=== PATIENT | female | born 1945 | race Asian ===

== ENCOUNTER → 2024-06-01 16:55 | Outpatient (REF) | payer MEDICARE, BC, SELFPAY | LOC: WDC 16:55 | PROVIDERS: ATTENDING PHYSICIAN Family Medicine | DX: Z12.31 Encounter for screening mammogram for malignant neoplasm of breast (principal) | CPT/HCPCS: 77063; 77067 ==

== ENCOUNTER → 2024-12-05 06:20 | Day surgery (SDC) | payer MEDICARE, BC, SELFPAY | LOC: GI 06:20 | PROVIDERS: ATTENDING PHYSICIAN Internal Medicine Gastroenterology | DX: Z12.11 Encounter for screening for malignant neoplasm of colon (principal); K64.8 Other hemorrhoids; K57.30 Diverticulosis of large intestine without perforation or abscess without bleeding; K29.50 Unspecified chronic gastritis without bleeding; D12.4 Benign neoplasm of descending colon; R10.13 Epigastric pain; K44.9 Diaphragmatic hernia without obstruction or gangrene; K31.89 Other diseases of stomach and duodenum | CPT/HCPCS: 45385; 43239; 88305; 88342 ==

== ENCOUNTER → 2025-04-25 13:31 | Outpatient (REF) | payer MEDICARE, BC, SELFPAY | LOC: RAD 13:31 | PROVIDERS: ATTENDING PHYSICIAN Family Medicine | DX: N39.0 Urinary tract infection, site not specified (principal) | CPT/HCPCS: 76770 ==

== ENCOUNTER 2025-05-05 09:11 | Emergency (ER) | payer MEDICARE, BC, SELFPAY ==
[2025-05-05 09:15] VITALS: BP 156/111
--- NOTE | 2025-05-05 10:06 | ED.GENMED ---
History of Present Illness
General
Chief Complaint: Allergic Reaction
Time Seen by Provider: 05/05/25 09:54
History of Present Illness
History of Present Illness:
79-year-old female presents to the emergency department for evaluation of left forearm and hand swelling after being stung by bee on the left forearm yesterday. Is been taking [id number]-rrw-[id number] antihistamines without improvement. Reports intense
itching and warmth to the area. No chest tightness or facial swelling. Requires mandrin interpretation for entire encounter
Past History
Past History
ED Past Medical History: Other (Wrist fracture, Kidney stones); Negative Asthma, HTN, Hypercholesterolemia or NIDDM
ED Past Surgical History: None
Social History
Tobacco: Non-smoker
Alcohol: None
Drug: None
Personal:
Living: with family
Employment: Not employed
Family History
Family History: Hypertension
Review of Systems
Review of Systems
Allergies reviewed?: Yes
All Other Systems: ROS reviewed and negative except as documented in HPI and ROS
Phy Exam
Physical Exam
Physical Exam:
GEN: Well appearing, NAD, WDWN
HEENT: Oral mucosa moist, no scleral icterus
Cardiac: Regular rate
Lung: No respiratory distress, no tachypnea
MSK: No gross deformity or injuries. Diffuse erythema and swelling from the proximal forearm extending to the hand with a punctate wound to the dorsal forearm from reported insect sting
Skin: Good color, no pallor or jaundice, no rashes
Neuro: AO x3, moves all extremities freely
Psych: Calm, cooperative
Course
Orders/Labs/Results
Orders:
Orders
05/05/25 10:08
Prednisone [Deltasone] 40 mg PO NOW STA
Vital Signs
Initial and Last Documented VS:
Initial Vital Signs
Temp Pulse Resp BP Pulse Ox
98.7 F 85 16 156/111 98
05/05/25 09:15 05/05/25 09:15 05/05/25 09:15 05/05/25 09:15 05/05/25 09:15
Last Documented Vital Signs
Temp Pulse Resp BP Pulse Ox
98.7 F 79 20 138/94 99
05/05/25 09:15 05/05/25 10:38 05/05/25 10:38 05/05/25 10:38 05/05/25 10:38
MDM/Problems Addressed
MDM/Problems Addressed:
Given rapidity of development of symptoms likely uncontrolled histamine response will treat with steroids, do not see indication for labs or antibiotics at this point
*Pulse Oximetry
SaO2: 98
Oxygen Mode of Delivery: Room air
Patient hypoxic: no (99% room air)
*Critical Care Note
Total Time (30-74mins, 75-104mins- exclusive of procedures): Not Applicable
ED Attending Note
-
Portions of this chart may have been created with voice recognition software.� Occasional wrong word or��sound alike� substitutions may have occurred due to the inherent limitations of voice recognition software.
Discharge Plan
Departure
Patient Disposition: Home (Routine Discharge)
Date of Disposition: 05/05/25
Time of Disposition: 10:08
Patient with high blood pressure during this ER visit?: No
Discharge Problem:
Allergic reaction
Instructions: Allergic reaction - ED discharge instructions
Prescriptions:
New
methylprednisolone [Medrol (Raad)] 4 mg tablets,dose pack
See Rx Instructions .ROUTE .COMPLEX Qty: 21 0RF
Rx Instructions:
orally per package directions
No Action
acetaminophen 325 MG tablet
650 mg PO Q4HPRN PRN (Reason: fever)
isoniazid 300 MG tablet
300 mg PO DAILY
Vitamin B-6
1 tab PO DAILY
hydrocodone-acetaminophen [Vicodin] 1 EACH tablet
1 ea PO .Q4-6HPRN Qty: 12 0RF
ibuprofen 600 MG tablet
600 mg PO Q6H Qty: 30 0RF
levofloxacin 500 MG tablet
500 mg PO DAILY Qty: 10 0RF
ondansetron 4 MG tablet,disintegrating
4 mg PO TIDPRN PRN (Reason: NAUSEA) Qty: 20 0RF
naproxen 500 MG tablet
500 mg PO BID Qty: 10 0RF
Rx Instructions:
Take with food.
diclofenac potassium 50 MG tablet
50 mg PO BID Qty: 20 0RF
Interventions
Interventions:
*Risk Screen - Suicide Last Done: 05/05/25 09:15
*General Assessment Last Done: 05/05/25 09:15
*Neglect/Abuse Screening Last Done: 05/05/25 09:15
*ED COVID-19 Vaccine History Last Done: 05/05/25 10:10
*Nursing Disposition Last Done: 05/05/25 10:38
ED- Cardiac Assessment Last Done: 05/05/25 10:10
ED- Pulmonary Assessment Last Done: 05/05/25 10:10
ED-Skin Assessment Last Done: 05/05/25 10:10
Discharge Date and Time
Discharge Date/Time: 05/05/25 10:39
Print Language: MACEDONIAN
[2025-05-05] MEDS: DELTASONE 40 MG PO (10:13)
[2025-05-05 10:38] VITALS: BP 138/94
== END 2025-05-05 10:39 | disposition home or self-care (01) ==
LOC: EMR 09:11
PROVIDERS: EMERGENCY PHYSICIAN Emergency Medicine
DX: T63.441A Toxic effect of venom of bees, accidental (unintentional), initial encounter (principal); R22.32 Localized swelling, mass and lump, left upper limb
CPT/HCPCS: 99283